=== PATIENT | male | born 1990 | race Two or more races ===

== ENCOUNTER 2022-04-14 10:49 | Emergency (ER) | payer MEDICAID, OTHER ==
[~2022-04-14] VITALS: Ht 182.9 cm; Wt 104.5 kg
[2022-04-14] MEDS ORDERED: LORazepam 2MG/ML-1ML VIAL IM ONE (11:30)
[2022-04-14 11:49] LABS: Basophils # (auto) 0.1 10 ^3/uL (0-0.2); Basophils % (auto) 0.9 % (0.0-2.0); Eosinophils # (auto) 0 10 ^3/uL (0-0.8); Eosinophils % (auto) 0.7 % (0.0-7.0); Lymphocytes # (auto) 1.4 10 ^3/uL (0.4-5.4); Lymphocytes % (auto) 20.1 % (10.0-50.0); Mean Corpuscular Hemoglobin 28.7 pg (28.0-32.0); Mean Corpuscular Volume 84.6 fL (80.0-100.0); Monocytes # (auto) 0.5 10 ^3/uL (0-1.3); Monocytes % (auto) 7.3 % (0.0-12.0); Neutrophils # (auto) 4.9 10 ^3/uL (1.6-8.6); Red Blood Cells 5.56 10^6/uL (4.5-5.90); White Blood Cell 6.8 10^3/uL (4.4-10.8)
[2022-04-14 12:06] LABS: BUN/Creatinine Ratio 14.1; Calcium 9.9 mg/dL (8.5-10.1); Potassium 4.2 mmol/L (3.5-5.1)
[2022-04-14 12:30] LABS: Alcohol, Urine < 3.0 mg/dL (0-10); Amphetamine Screen, Urine NEGATIVE (NEGATIVE); Cannabinoid Screen, Urine NEGATIVE (NEGATIVE); Opiate Scree,Urine POSITIVE (NEGATIVE)
[2022-04-14 12:34] LABS: Barbiturate Scree,Urine NEGATIVE (NEGATIVE); Benzodiazephine Screen, Urine NEGATIVE (NEGATIVE); Cocaine Screen, Urine NEGATIVE (NEGATIVE); Phencyclidine Screen, Urine NEGATIVE (NEGATIVE)
[2022-04-14 12:52] VITALS: BP 150/102
[2022-04-14] MEDS ORDERED: HYDR50CA PO (13:01)
== END 2022-04-14 13:02 | disposition home or self-care (01) ==
LOC: ER 10:49
DX: F41.9 Anxiety disorder, unspecified (principal)
CPT/HCPCS: 36415; 80048; 80307; 84484; 85025; 96372; 99283; J2060

== ENCOUNTER 2023-03-25 10:21 | Emergency (ER) | payer MEDICAID ==
[~2023-03-25] VITALS: Ht 182.9 cm; Wt 114.7 kg
[~2023-03-25 10:21] MED LIST: HYDR50CA PO
[2023-03-25 10:58] VITALS: BP 131/79; PULSE 82; RESP 18; TEMP 97.3; O2SAT 96
[2023-03-25] MEDS ORDERED: KETOROLAC TROMETH 60MG/2ML VIAL IM ONE (11:30)
[2023-03-25] MEDS ORDERED: IBUP1TAB5 PO (12:02)
== END 2023-03-25 12:19 | disposition home or self-care (01) ==
LOC: ER 10:21
DX: S93.401A Sprain of unspecified ligament of right ankle, initial encounter (principal); X50.1XXA Overexertion from prolonged static or awkward postures, initial encounter; Y93.89 Activity, other specified; Y92.89 Other specified places as the place of occurrence of the external cause; Y99.8 Other external cause status
CPT/HCPCS: 73610; 73630; 96372; 99284; J1885